=== PATIENT | male | born 1950 | race Caucasian/White ===

== ENCOUNTER 2016-12-13 08:49 | Emergency (ER) | payer MEDICAID, MEDICARE ==
[2016-12-13 09:08] VITALS: BP 143/81
--- NOTE | 2016-12-13 09:36 | EDM.PDOC ---
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 He thought maybe he was getting a migraine. Later in the evening he suddenly had multiple floaters and these remain this am. He feels like his vision is ok. Onset: Other (yesterday. ) Duration: Hour(s): Location: Reports: Other ( visual change) Denies Pain Score (Numeric/FACES): 0 - Related Data Allergies Allergy/AdvReac Type Severity Reaction Status Date / Time ibuprofen [From Motrin] Allergy Rash Verified 12/13/16 09:30 Home Meds: Home Meds . [Unable to Verify Home Med List] 12/13/16 [History] ED ROS ENT - Review of Systems Review Of Systems: See Below Constitutional: Reports: No Symptoms HEENT: Reports: Vision Change (pt is seeing floaters. ), Other Cardiovascular: Reports: No Symptoms Endocrine: Reports: No Symptoms GI/Abdominal: Reports: No Symptoms : Reports: No Symptoms ED EXAM, ENT - Physical Exam Exam: See Below Text/Narrative:: pt had a vion check and he ws 20/30, He is seeing alot of floaters in the rt eye. Exam Limited By: No Limitations General Appearance: Alert, No Apparent Distress, Other (pt has a reactive pupil. He had a vion check of 20/30. He is seeing alot of floaters in the rt eye. He also is seeing some rims of lites. His fundi does not reveal any hemmorage and his vessels can be seen well. ) Ears: Normal External Exam Nose: Normal Inspection Mouth/Throat: Normal Inspection Head: Atraumatic Neck: Normal Inspection Respiratory/Chest: No Respiratory Distress GI/Abdominal: Soft, Non-Tender (Male) Exam: Deferred Rectal (Males) Exam: Deferred Back: Normal Inspection Neurological: Alert, Oriented, Normal Cognition Course - Vital Signs Last Recorded V/S: Last Vital Signs Temp 35.4 C 12/13/16 09:06 Pulse 58 L 12/13/16 09:06 Resp 16 12/13/16 09:06 BP 143/81 H 12/13/16 09:06 Pulse Ox 96 12/13/16 09:06 Departure - Departure Time of Disposition: 09:36 Disposition: Home, Self-Care 01 Condition: Fair Clinical Impression: Retina disorder, right - Discharge Information Referrals: PCP,None [Primary Care Provider] - Forms: ED Department Discharge Care Plan Goals: go to the [facility] eye clinic for further evaluation of the retina.
== END 2016-12-13 09:44 | disposition home or self-care (01) ==
LOC: JP.ED 08:49
DX: H35.9 Unspecified retinal disorder (principal); Z88.6 Allergy status to analgesic agent
CPT/HCPCS: 99283